=== PATIENT | female | born 1975 | race Caucasian/White ===

== ENCOUNTER → 2017-01-01 | Outpatient (CLI) | payer BC ==
[2017-01-01 11:48] LABS: Basophils # (A) 0.1 k/uL (0-0.2); Basophils % (A) 1 %; CH 30.7; CHCM 33.5; Eosinophils # (A) 0.5 k/uL (0-0.7); Eosinophils % (A) 6 %; HCT 45.1 % (34.0-46.0); HDW 2.26; HGB 14.7 gm/dL (11.4-16.0); Luc # (Auto) 0.19; Luc % (Auto) 2; Lymphocytes # (A) 2.2 k/uL (1.0-4.8); Lymphocytes % (A) 29 %; MCH 29.9 pg (25.0-35.0); MCHC 32.5 g/dL (31.0-37.0); MCV 91.9 fL (80.0-100.0); Mean Platelet Volume 7.8; Monocytes # (A) 0.4 k/uL (0-1.0); Monocytes % (A) 6 %; Neutrophils # (A) 4.4 k/uL (1.3-7.7); Neutrophils % (A) 57 %; RDW 12.7 % (11.5-15.5); WBC 7.8 k/uL (3.8-10.6); WBC (Perox) 7.77
== END | disposition home or self-care (01) ==
LOC: LABWHC1 11:16
PROVIDERS: ATTEND Obstetrics & Gynecology
DX: Z00.00 Encounter for general adult medical examination without abnormal findings (principal)
CPT/HCPCS: 36415; 80061; 82306; 82947; 84439; 84443; 85025

== ENCOUNTER 2019-04-28 09:28 | Day surgery (SDC) | payer BC ==
[2019-04-26 11:29] VITALS: BMI 41.6
[~2019-04-28 09:28] MED LIST: DEXAMETHASONE SOD PHOSPHATE 10 MG/ML 1 ML VIAL IV ONE; LIDOCAINE 1% 20 ML VIAL (10MG/ML) FOR IV START INTRADERMA PRN; MELOXICAM 7.5 MG TAB PO ONE; MIDAZOLAM 2 MG/2 ML VIAL IV PRN; ONDANSETRON 4 MG/2 ML VIAL IVP ONE; ceFAZolin IN SWFI 2 GM/20 ML SYRINGE IVP ONE; fentaNYL (PF) 50 MCG/ML 2 ML AMP IV PRN
[2019-04-28] MEDS: LACTATED RINGERS 1,000 ML IV SCH ×2 (10:06→11:17)
[2019-04-28] MEDS ORDERED: MIDAZOLAM 2 MG/2 ML VIAL ONE (11:38)
[2019-04-28] MEDS ORDERED: NEOSTIGMINE 1 MG/ML 10 ML VIAL ONE (11:38)
[2019-04-28] MEDS ORDERED: LIDOCAINE 1% INJ 10MG/ML (20 ML MDV) ONE (11:38)
[2019-04-28] MEDS ORDERED: SUCCINYLCHOLINE CHLORIDE 100 MG/5 ML SYR IV ONE (11:38)
[2019-04-28] MEDS ORDERED: PROPOFOL 10 MG/ML 20 ML VIAL IV ONE (11:38)
[2019-04-28] MEDS ORDERED: ROCURONIUM BROMIDE 10 MG/ML 10 ML VIAL IV ONE (11:38)
[2019-04-28] MEDS ORDERED: fentaNYL (PF) 50 MCG/ML 2 ML AMP ONE (11:38)
[2019-04-28] MEDS ORDERED: GLYCOPYRROLATE 0.2 MG/ML 2 ML VIAL ONE (11:38)
--- NOTE | 2019-04-28 11:50 | P.OPNOTE ---
Outpatient Note - . Assessment/Comments:: Patient seen and examined in preoperative holding. History and physical dated 04/22/2019 is confirmed with no new medical problems or health history changes.
[2019-04-28] MEDS ORDERED: BUPIVACAINE (PF) 0.25% 30 ML VIAL SQ ONE (12:21)
--- NOTE | 2019-04-28 13:30 | P.OP ---
Date of Procedure: 04/28/19 Procedure(s) Performed: PREOPERATIVE DIAGNOSES: 1. Right knee anterior cruciate ligament tear POSTOPERATIVE DIAGNOSES: 1. Right knee anterior cruciate ligament tear PROCEDURES PERFORMED: 1. Right knee arthroscopically-assisted anterior cruciate ligament reconstruction with soft tissue allograft ANESTHESIA: reverse logistics analyst: Lashell Ace PA-C (assistance with: patient positioning, retraction, graft prep, camera operation, reconstruction, irrigation, closure, dressing) COMPLICATIONS: None ESTIMATED BLOOD LOSS: Less than 20 cc TOURNIQUET: 75 minutes DISPOSITION: To post-anesthesia care unit INDICATIONS: Annalee is a 43-year-old female with a history of right knee ACL tear. She also has generalized ligament laxity. We have discussed different approaches to ACL reconstruction and the decision is for soft tissue allograft reconstruction with possible meniscal repair versus debridement. I have explained the details of this surgery thoroughly and also explained the potential risks and complications, including the relative risks of graft failure. Other risks are inclusive of, but not limited to: bleeding, infection, scarring, discomfort, blood vessel and nerve damage, stiffness, weakness, need for further surgery, failure to relieve symptoms, persistence or worsening of problems, , and other risks. The patient is aware of these risks and agrees to proceed with surgery. The consent form has been signed. PROCEDURE: After appropriate consent was obtained, the patient was taken to the operating room and placed supine on the operating table. General anesthesia was initiated. The knee was examined under anesthesia. Medial collateral, lateral collateral and posterior cruciate ligaments were all intact. There was positive pivot shift of 2+ and 4mm anterior translation with both Sheldon and anterior drawer. Full range of motion was noted without crepitus. No effusion or soft tissue swelling was noted. Prepping and draping of the right knee was performed in the usual sterile fashion using ChloraPrep. Care was taken that all pressure points were adequately padded. Leg romero and pneumotourniquet were used. Time-out was called according to JCAHO standards, confirming patient identity, surgical procedure, side, and antibiotic administration. Graft preparation took place on the Arthrex graft preparation station. The preprepared graft was inserted onto the Arthrex ACL tightrope RT on one side, and the ABS sutures on the other. These devices were then attached to the adjustable sliding units on the prep station. The graft was then set to 20 pounds of tension on the graft prep board and covered with a sterile saline soa ked gauze pad. During the preparation of the graft, arthroscopy commenced. The surgical portals were placed directly next to the patellar tendon medially and laterally. Camera and instruments were carefully inserted into the knee and arthroscopy was performed. The patellofemoral joint was normal. Hyaline cartilage was normal. No loose bodies in the medial or lateral gutters, quad tendon normal. No plica. Lateral compartment showed normal hyaline cartilage without defect. Meniscus was normal to visualization and probing. No loose bodies were seen within the lateral compartment. Medial compartment was then examined. Medial hyaline cartilage of the femur and tibia were normal. Medial meniscus showed no tear to visualization and probing. The notch of the knee was then inspected. The patient had a complete tear of the ACL at the femoral attachment with a small Cyclops lesion. The remnant was debrided away with care to avoid injuring the PCL. The notch in this patient wa s somewhat narrow, and so it was expanded in the lateral direction with a leeroy. Only 3 mm of bone was resected from the lateral portion of the notch, just enough to get the guide in.. The soft tissue on the lateral side of the notch was cleared as necessary using a shaver. Next, the femoral socket was created using the Arthrex flip cutter guide. The guide was adjusted through the anterolateral portal after careful measurement of the anterior to posterior condylar distance on the lateral notch. A spot approximately between 40 and 50% of this length was chosen and the guide was moved superiorly only as much as to allow for a 2.5 mm back wall. Incision was created on the lateral side of the thigh over the IT band and the guide was placed against the bone. Guide position was adjusted so that there was 20 of anterior elevation in the coronal plane of the femur and 60 in the sagittal plane. Drilling was then performed using the flip cutter drill pin into the knee at the appropriate location. Once the pin position was noted to be satisfactory, the guide was removed and the drill sleeve was tapped into the bone using a mallet. The flip cutter was then deployed and retro-drilling was performed to create a femoral socket of approximately 25 mm. Debris was suctioned out using a shaver. Passing suture was then inserted into the knee joint and carried out through the anteromedial portal. The tibial tunnel was created by the following steps. The retro-cutter aiming guide for the tunnel was placed into the anteromedial portal and onto the cleared central footprint of the gakona ACL. The guide cylinder was placed securely on the tibial cortex. The tibial bone length was measured. The retro- cutter guide pin was then inserted into the tibia to emerge at the mid-posterior aspect of the gakona ACL footprint, approximately 5 mm from the PCL and just anterior to the posterior border of the anterior horn of the lateral meniscus. The pin was noted to be in excellent position. The retro-cutter was then deployed and reverse drilling was performed creating a tibial socket approximately 30 mm in length. No fracture was noted. The intraarticular debris was removed using a shaver. Graft passing suture was placed. The femoral portion of the GraftLink construct was then inserted into the knee joint, guided by the passing suture. The Endobutton was carried through the femoral cortex and flipped, engaging the cortex securely. Approximately 10 mm or so of the graft was then placed into the femoral socket, using the sutures of the Endobutton. In similar fashion, the graft passing suture was placed into the loop and brought out through the tibial tunnel. This brought the tibial ABS sutures along with it. Approximately 15 mm of graft was placed within the tibial tunnel at which point the adjustable button for the tibia was placed on the sutures. The femoral portion of the graft was completely deployed at this point and bottomed out nicely. The adjustable button was confirmed to be on the cortex of the tibia without interposed soft tissue and preliminary tensioning was performed at that point in full extension. No graft impingement was noted. The knee was then taken through range of motion cycling 10 times. There was no significant motion of the graft detected and the femoral and tibial fixation was noted to be solid. Further tightening of the sutures was performed in extension from the tibial side and the knee was cycled 10 more times with final tightening of the sutures at that point. Sutures were then tied together over the button. Knee was then taken through range of motion which was noted to be full. No graft impingement was noted at the roof or sides of the notch. Fluid was removed from the knee and testing was performed. Anterior drawer 0 mm and Sheldon 0 mm. Negative pivot shift. Tourniquet was deflated. Hemostasis was obtained using cautery and pressure. Graft passing sutures were removed or cut as necessary. Thorough irrigation using antibiotic solution was performed, and portals were closed with 4-0 Monocryl suture. Posterior medial incision for hamstring harvest was closed with 3-0 Vicryl suture in the subcutaneous tissue, followed by 4-0 Monocryl suture in running subcuticular fashion for the skin, followed by Dermabond. Tibial incision was closed with 4-0 Monocryl for the skin. Steri strips were applied. Sterile dressing and light compressive dressing was applied using Webril and SLOAN wrap. Knee immobilizer was applied. Patient tolerated the procedure well and taken to recovery room in stable condition. Sponge and needle counts were correct.
[2019-04-28] MEDS ORDERED: LACTATED RINGERS 1,000 ML IV ONE (13:36)
[2019-04-28 13:51] VITALS: TEMP 96.2
[2019-04-28] MEDS ORDERED: KETOROLAC 30 MG/ML 1 ML VIAL IVP ONE (13:51)
[2019-04-28] MEDS ORDERED: HYDROmorphone 1 MG/ML 1 ML SYRINGE IVP ONE ×2 (14:06→14:21)
[2019-04-28 14:21] VITALS: RESP 16
[2019-04-28 14:43] VITALS: BP 109/65
[2019-04-28 15:05] VITALS: PULSE 54
== END 2019-04-28 15:52 | disposition home or self-care (01) ==
LOC: OR 09:28
PROVIDERS: ATTEND Orthopaedic Surgery
DX: S83.511A Sprain of anterior cruciate ligament of right knee, initial encounter (principal); X58.XXXA Exposure to other specified factors, initial encounter; J45.909 Unspecified asthma, uncomplicated; J98.4 Other disorders of lung; F41.9 Anxiety disorder, unspecified; K21.9 Gastro-esophageal reflux disease without esophagitis; F32.9 Major depressive disorder, single episode, unspecified; Z90.710 Acquired absence of both cervix and uterus; I34.1 Nonrheumatic mitral (valve) prolapse; Z79.3 Long term (current) use of hormonal contraceptives; Z79.51 Long term (current) use of inhaled steroids; Z79.810 Long term (current) use of selective estrogen receptor modulators (SERMs); Z79.899 Other long term (current) drug therapy; Z83.3 Family history of diabetes mellitus; Z91.041 Radiographic dye allergy status
CPT/HCPCS: 29888; C1713; C1762; J2250; J1100; J2710; J2405; J2001; J3010; J1885; J1170; J0330; J2704; J0690

== ENCOUNTER 2020-10-08 10:12 | Emergency (ER) | payer BC ==
[2020-10-08 10:19] VITALS: RESP 18
[2020-10-08] MEDS ORDERED: ACETAMINOPHEN TAB 325 MG TAB PO STA (10:35)
--- NOTE | 2020-10-08 10:35 | ED ---
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 pateint states yesterday while cooking scott she could not smell it very well. Patient states she developed a small back spelled could only small and smell it faintly. Pt was concerned of covid. This morning patient woke up this AM and states that she felt like she could not expand her lungs, they felt tight with a deep breath and she had a slight cough, fatigue. Denies vomiting, diarrhea, known fevers. patient denies arm or jaw pain. Pt states she was not concerned of her heart she states it feels like lungs are tight. Patient is in good spirits and appears well on arrival. - Related Data Home Medications Medication Instructions Recorded Confirmed Lisdexamfetamine Dimesylate 50 mg PO QAM 10/08/20 10/08/20 [Vyvanse] Tamoxifen Citrate 20 mg PO HS 10/08/20 10/08/20 Venlafaxine HCl ER [Effexor Xr] 75 mg PO DAILY 10/08/20 10/08/20 Allergies Allergy/AdvReac Type Severity Reaction Status Date / Time Iodinated Contrast Media Allergy Rash/Hives Verified 10/08/20 11:07 [Iodinated Contrast- Oral and IV Dye] MRI CONTRAST DYE Allergy Rash/Hives Uncoded 10/08/20 10:19 Review of Systems ROS Statement: Those systems with pertinent positive or pertinent negative responses have been documented in the HPI. ROS Other: All systems not noted in ROS Statement are negative. Past Medical History Past Medical History: Asthma, GERD/Reflux History of Any Multi-Drug Resistant Organisms: None Reported Past Surgical History: Hysterectomy Additional Past Surgical History / Comment(s): R ACL repair, breast reduction Past Psychological History: Depression Smoking Status: Never smoker Past Alcohol Use History: None Reported Past Drug Use History: None Reported General Exam - General Exam Comments Initial Comments: General: The patient is awake and alert, in no distress, and does not appear acutely ill. Eye: +3 mm pupils are equal, round and reactive to light, extra-ocular movements are intact. No nystagmus. There is normal conjunctiva bilaterally. No signs of icterus. Ears, nose, mouth and throat: There are moist mucous membranes and no oral lesions. Neck: The neck is supple, there is no tenderness or JVD. Cardiovascular: There is a regular rate and rhythm. No murmur, rub or gallop is appreciated. Respiratory: Lungs are clear to auscultation, respirations are non-labored, damien ath sounds are equal. No wheezes, stridor, rales, or rhonchi. Gastrointestinal: Soft, non-distended, non-tender abdomen without masses or organomegaly noted. There is no rebound or guarding present. Musculoskeletal: Normal ROM, no tenderness. Strength 5/5. Sensation intact. Radia pulses equal bilaterally 2+. Neurological: A&O x 3. CN II-XII intact grossly, There are no obvious motor or sensory deficits. Coordination appears grossly intact. Speech is normal. Skin: Skin is warm and dry and no rashes or lesions are noted. Psychiatric: Cooperative, appropriate mood & affect, normal judgment. Limitations: no limitations Course Vital Signs 10/08/20 10/08/20 10/08/20 10:14 10:37 11:54 Temperature 100.5 F H 98.8 F Pulse Rate 104 H 85 Respiratory 18 18 18 Rate Blood Pressure 128/89 125/90 O2 Sat by Pulse 97 99 Oximetry Chest Pain MDM - MDM 45yo female presenting for chest tightness with inspiration. CXR posssible developing infiltrate. COvid +. Patient VS within acceptable limits as are laboratory studies. Pt does not appear in distress. discussed reutnr parameters. and patient was discharged appearing well. Dr. Do reviewed EKG, we discussed case/labs pt discharged appearing well. Ventricular rate 89 bpm, NJ interval 128 ms, QR samaritan 84 ms, QT/QTC 378/[address] elevation or depression is appreciated Disposition Clinical Impression: Chest discomfort, Loss of taste, Loss of smell, Fever Disposition: HOME SELF-CARE Condition: Good Instructions (If sedation given, give patient instructions): Upper Respiratory Infection (ED) Additional Instructions: Please use medication as discussed. Please follow-up with family doctor in the next 2 days.. Please return to emergency room if the symptoms increase or worsen or for any other concerns. Is patient prescribed a controlled substance at d/c from ED?: No Referrals: Alonzo Dugan MD [Primary Care Provider] - 1-2 days Time of Disposition: 12:00
[2020-10-08 11:18] LABS: Basophils % (A) 1 %; Eosinophils # (A) 0.1 k/uL (0-0.7); Eosinophils % (A) 2 %; HCT 41.7 % (34.0-46.0); HGB 13.6 gm/dL (11.4-16.0); Lymphocytes % (A) 25 %; MCH 28.6 pg (25.0-35.0); MCHC 32.7 g/dL (31.0-37.0); MCV 87.5 fL (80.0-100.0); Monocytes # (A) 0.4 k/uL (0-1.0); Monocytes % (A) 10 %; Neutrophils # (A) 2.4 k/uL (1.3-7.7); Neutrophils % (A) 60 %; Platelet Count 170 k/uL (150-450); RBC 4.76 m/uL (3.80-5.40); RDW 12.8 % (11.5-15.5); WBC 3.9 k/uL (3.8-10.6)
[2020-10-08 11:32] LABS: ALT 42 U/L (4-34); AST 48 U/L (14-36); African American GFR (CKD) >90 (>60 ml/min/1.73 sqM); Albumin 4.1 g/dL (3.5-5.0); Alkaline Phosphatase 78 U/L (38-126); Anion Gap 10 mmol/L; Blood Urea Nitrogen 13 mg/dL (7-17); C Reactive Protein 11.4 mg/L (<10.0); Carbon Dioxide 20 mmol/L (22-30); Chloride 107 mmol/L (98-107); Glucose 97 mg/dL (74-99); LDH 505 U/L (313-618); Non-African American GFR(CKD) >90 (>60 ml/min/1.73 sqM); Potassium 4.3 mmol/L (3.5-5.1); Sodium 137 mmol/L (137-145); Total Bilirubin 0.2 mg/dL (0.2-1.3); Total Protein 6.9 g/dL (6.3-8.2)
[2020-10-08 11:38] LABS: D-Dimer 0.28 mg/L FEU (<0.60); INR 0.9 (<1.2); Partial Thromboplastin Time 22.7 sec (22.0-30.0); Prothrombin Time 9.7 sec (9.0-12.0)
[2020-10-08] MEDS ORDERED: AZITHROMYCIN 500 MG TAB PO STA (11:39)
--- NOTE | 2020-10-08 11:39 | XR ---
EXAMINATION TYPE: XR chest 1V portable DATE OF EXAM: 10/08/2020 COMPARISON: NONE HISTORY: Chest pain TECHNIQUE: Single frontal view of the chest is obtained. FINDINGS: Increased density right medial lung base may reflect developing infiltrate. Correlate clinically and progress studies are recommended. The cardiac silhouette size is within normal limits. The osseous structures are intact. IMPRESSION: 1. Increased density right medial lung base may reflect developing infiltrate. Correlate clinically and progress studies are recommended.
[2020-10-08 12:12] VITALS: BP 120/84; PULSE 96; TEMP 98.6
[2020-10-08 18:59] LABS: Ferritin 221.7 ng/mL (10.0-291.0)
== END 2020-10-08 12:12 | disposition home or self-care (01) ==
LOC: EC 10:12
DX: U07.1 COVID-19 (principal); F32.9 Major depressive disorder, single episode, unspecified; Z79.899 Other long term (current) drug therapy; Z91.041 Radiographic dye allergy status
CPT/HCPCS: 36415; 71045; 80053; 82728; 83605; 83615; 83735; 84145; 84484; 85025; 85379; 85610; 85730; 86140; 87040; 87635; 93005; 99285

== ENCOUNTER 2020-10-11 19:17 | Emergency (ER) | payer BC ==
[2020-10-11] MEDS ORDERED: DEXAMETHASONE SOD PHOSPHATE 10 MG/ML 1 ML VIAL IV STA (19:21)
[2020-10-11] MEDS ORDERED: SODIUM CHLORIDE 0.9% 1,000 ML IV ONE (19:21)
[2020-10-11 19:50] LABS: Basophils % (A) 0 %; Eosinophils % (A) 1 %; HCT 41.8 % (34.0-46.0); HGB 13.4 gm/dL (11.4-16.0); Lymphocytes # (A) 0.9 k/uL (1.0-4.8); Lymphocytes % (A) 23 %; MCH 27.9 pg (25.0-35.0); MCHC 32.1 g/dL (31.0-37.0); MCV 86.8 fL (80.0-100.0); Mean Platelet Volume 8.5; Monocytes # (A) 0.1 k/uL (0-1.0); Monocytes % (A) 3 %; Neutrophils # (A) 2.8 k/uL (1.3-7.7); Neutrophils % (A) 72 %; Platelet Count 178 k/uL (150-450); RBC 4.82 m/uL (3.80-5.40); RDW 12.4 % (11.5-15.5); WBC 3.9 k/uL (3.8-10.6)
--- NOTE | 2020-10-11 20:01 | ED ---
SOB HPI - General Chief Complaint: Shortness of Breath Stated Complaint: SOB Time Seen by Provider: 10/11/20 19:20 Source: patient Mode of arrival: ambulatory - History of Present Illness Initial Comments: 45-year-old female patient presents to the emergency department today for e valuation of increasing shortness of breath and cough. Patient states that she was diagnosed with COVID-19 on Wednesday. States she's been having symptoms for about a week total which include cough, shortness of breath, and headaches. States she does have a history of asthma and has been attempting to use her inhaler which is not helping. States she did see her primary care physician was started on a Medrol Dosepak. Patient states that today her breathing became worse and she wanted to get evaluated. There are other sick individuals in her home. She denies any other medical problems. Denies hemoptysis, dizziness, or fainting. Denies any leg swelling or pain. Denies history of smoking cigarettes. Patient denies any recent rash, abdominal pain, nausea, vomiting, diarrhea, constipation, back pain, numbness, tingling, dizziness, weakness, hematuria, dysuria, urinary urgency, urinary frequency, headache, visual changes, or any other complaints. - Related Data Home Medications Medication Instructions Recorded Confirmed Lisdexamfetamine Dimesylate 50 mg PO QAM 10/08/20 10/08/20 [Vyvanse] Tamoxifen Citrate 20 mg PO HS 10/08/20 10/08/20 Venlafaxine HCl ER [Effexor Xr] 75 mg PO DAILY 10/08/20 10/08/20 Previous Rx's Medication Instructions Recorded Azithromycin [Zithromax Z-pack (6 0 mg PO DIRECTED 5 Days #6 tab 10/08/20 tabs)] Allergies Allergy/AdvReac Type Severity Reaction Status Date / Time Iodinated Contrast Media Allergy Rash/Hives Verified 10/08/20 11:07 [Iodinated Contrast- Oral and IV Dye] MRI CONTRAST DYE Allergy Rash/Hives Uncoded 10/08/20 10:19 Review of Systems ROS Statement: Those systems with pertinent positive or pertinent negative responses have been documented in the HPI. ROS Other: All systems not noted in ROS Statement are negative. Past Medical History Past Medical History: Asthma, GERD/Reflux History of Any Multi-Drug Resistant Organisms: None Reported Past Surgical History: Hysterectomy Additional Past Surgical History / Comment(s): R ACL repair, breast reduction Past Psychological History: Anxiety, Depression Smoking Status: Never smoker Past Alcohol Use History: None Reported Past Drug Use History: None Reported General Exam General appearance: alert, in no apparent distress, other (Physical well- developed, well-nourished adult female patient in no acute distress. Vital s igns upon presentation temperature 98.1F, pulse 82, respirations 22, blood pressure 121/78, pulse ox 99% on room air.) Eye exam: Present: normal appearance, PERRL, EOMI. Absent: scleral icterus, conjunctival injection, periorbital swelling ENT exam: Present: normal exam, normal oropharynx, mucous membranes moist Respiratory exam: Present: normal lung sounds bilaterally, other (Tachypnea). Absent: respiratory distress, wheezes, rales, rhonchi, stridor Cardiovascular Exam: Present: regular rate, normal rhythm, normal heart sounds. Absent: systolic murmur, diastolic murmur, rubs, gallop, clicks GI/Abdominal exam: Present: soft, normal bowel sounds. Absent: distended, tenderness, guarding, rebound, rigid Neurological exam: Present: alert, oriented X3, CN II-XII intact Psychiatric exam: Present: normal affect, normal mood Skin exam: Present: warm, dry, intact, normal color. Absent: rash Course Vital Signs 10/11/20 19:25 Temperature 98.1 F Pulse Rate 82 Respiratory 22 Rate Blood Pressure 121/78 O2 Sat by Pulse 99 Oximetry Medical Decision Making - Medical Decision Making 45-year-old female patient diagnosed with COVID-19 on Wednesday after having symptoms for the last week. Patient comes in today reporting increased shortness of breath and worsening cough. Physical examination did reveal clear equal lung sounds. She did appear to be short of breath. She is able to speak full sentences. Chest x-ray is negative. Labs reviewed and did reveal mildly elevated liver enzymes, lymphopenia, and mildly elevated CRP. V/S look good, O2 saturation 99-100% on room air. I did discuss findings and results with the patient. She is instructed to continue home steroids and inhaler. She'll be discharged from the primary care physician for recheck in 1-2 days. Return parameters were discussed in detail. She verbalizes understanding and agrees with this plan. - Lab Data Result diagrams: 10/11/20 19:44 10/11/20 19:44 Lab Results 10/11/20 10/11/20 Range/Units 19:44 19:44 WBC 3.9 (3.8-10.6) k/uL RBC 4.82 (3.80-5.40) m/uL Hgb 13.4 (11.4-16.0) gm/dL Hct 41.8 (34.0-46.0) % MCV 86.8 (80.0-100.0) fL MCH 27.9 (25.0-35.0) pg MCHC 32.1 (31.0-37.0) g/dL RDW 12.4 (11.5-15.5) % Plt Count 178 (150-450) k/uL MPV 8.5 Neutrophils % 72 % Lymphocytes % 23 % Monocytes % 3 % Eosinophils % 1 % Basophils % 0 % Neutrophils # 2.8 (1.3-7.7) k/uL Lymphocytes # 0.9 L (1.0-4.8) k/uL Monocytes # 0.1 (0-1.0) k/uL Eosinophils # 0.0 (0-0.7) k/uL Basophils # 0.0 (0-0.2) k/uL Sodium 136 L (137-145) mmol/L Potassium 4.9 (3.5-5.1) mmol/L Chloride 108 H (98-107) mmol/L Carbon Dioxide 16 L (22-30) mmol/L Anion Gap 12 mmol/L BUN 11 (7-17) mg/dL Creatinine 0.61 (0.52-1.04) mg/dL Est GFR (CKD-EPI)AfAm >90 (>60 ml/min/1.73 sqM) Est GFR (CKD-EPI)NonAf >90 (>60 ml/min/1.73 sqM) Glucose 151 H (74-99) mg/dL Calcium 9.4 (8.4-10.2) mg/dL Total Bilirubin 0.4 (0.2-1.3) mg/dL AST 68 H (14-36) U/L ALT 52 H (4-34) U/L Alkaline Phosphatase 100 (38-126) U/L Lactate Dehydrogenase 749 H (313-618) U/L C-Reactive Protein 15.5 H (<10.0) mg/L Total Protein 7.3 (6.3-8.2) g/dL Albumin 4.2 (3.5-5.0) g/dL - Radiology Data Radiology results: report reviewed, image reviewed One view x-ray of the chest is obtained. Report was reviewed in its entirety. Impression by Dr. Luna shows normal chest. No change. Disposition Clinical Impression: COVID-19, Shortness of breath Disposition: HOME SELF-CARE Condition: Good Instructions (If sedation given, give patient instructions): Viral Syndrome (ED), Shortness of Breath (ED) Additional Instructions: Continue medications as directed. Follow-up through primary care physician for recheck in 1-2 days. Return to the emergency department immediately if you're symptoms change or worsen. Is patient prescribed a controlled substance at d/c from ED?: No Referrals: Alonzo Dugan MD [Primary Care Provider] - 1-2 days Time of Disposition: 20:45
[2020-10-11 20:03] LABS: AST 68 U/L (14-36); African American GFR (CKD) >90 (>60 ml/min/1.73 sqM); Albumin 4.2 g/dL (3.5-5.0); Alkaline Phosphatase 100 U/L (38-126); Anion Gap 12 mmol/L; Blood Urea Nitrogen 11 mg/dL (7-17); C Reactive Protein 15.5 mg/L (<10.0); Calcium 9.4 mg/dL (8.4-10.2); Carbon Dioxide 16 mmol/L (22-30); Chloride 108 mmol/L (98-107); Glucose 151 mg/dL (74-99); LDH 749 U/L (313-618); Non-African American GFR(CKD) >90 (>60 ml/min/1.73 sqM); Potassium 4.9 mmol/L (3.5-5.1); Sodium 136 mmol/L (137-145); Total Bilirubin 0.4 mg/dL (0.2-1.3); Total Protein 7.3 g/dL (6.3-8.2)
[2020-10-11 20:08] LABS: ALT 52 U/L (4-34)
--- NOTE | 2020-10-11 20:29 | XR ---
EXAMINATION TYPE: XR chest 1V portable DATE OF EXAM: 10/11/2020 COMPARISON: 10/08/2020 HISTORY: Cough TECHNIQUE: Single view FINDINGS: Heart is normal. Lungs are clear of infiltrate. There is no heart failure. There are no hil ar masses. The bony thorax is intact. IMPRESSION: Normal chest. No change.
[2020-10-11 21:31] VITALS: BP 130/68; PULSE 86; RESP 20; TEMP 98.4
== END 2020-10-11 21:20 | disposition home or self-care (01) ==
LOC: EC 19:17
DX: U07.1 COVID-19 (principal); D72.810 Lymphocytopenia; R94.5 Abnormal results of liver function studies; R79.82 Elevated C-reactive protein (CRP); F41.9 Anxiety disorder, unspecified; F32.9 Major depressive disorder, single episode, unspecified; Z79.899 Other long term (current) drug therapy; Z91.041 Radiographic dye allergy status
CPT/HCPCS: 36415; 80053; 83615; 85025; 86140; 71045; 99285; 96374; 96361; J1100

== ENCOUNTER → 2024-04-13 | Outpatient (CLI) | payer BC ==
[2024-04-14 03:31] LABS: Basophils # (A) 0.11 X 10*3/uL (0.00-0.10); Basophils % (A) 1.2 %; Eosinophils # (A) 0.54 X 10*3/uL (0.04-0.35); Eosinophils % (A) 5.7 %; HCT 36.8 % (37.2-46.3); HGB 11.3 g/dL (12.0-15.0); Lymphocytes # (A) 3.17 X 10*3/uL (0.90-5.00); Lymphocytes % (A) 33.6 %; MCH 25.3 pg (27.0-32.0); MCHC 30.7 g/dL (32.0-37.0); MCV 82.3 FL (80.0-97.0); Mean Platelet Volume 12.2 FL (9.5-12.2); Monocytes # (A) 0.61 X 10*3/uL (0.20-1.00); Monocytes % (A) 6.5 %; NRBC Per 100 WBC 0 X 10*3/uL (0.00-0.01); Neutrophils # (A) 4.99 X 10*3/uL (1.80-7.70); Neutrophils % (A) 52.8 %; Platelet Count 263 X 10*3/uL (140-440); RBC 4.47 X 10*6/uL (4.10-5.20); RDW 15.9 % (11.5-14.5); WBC 9.44 X 10*3/uL (4.50-10.00)
[2024-04-14 05:30] LABS: ALT 40 U/L (8-44); AST 28 U/L (13-35); Albumin 4.4 g/dL (3.8-4.9); Albumin/Globulin Ratio 1.76 Ratio (1.60-3.17); Alkaline Phosphatase 104 U/L (41-126); BUN/Creat Ratio 18.75 Ratio (12.00-20.00); Calcium 9.3 mg/dL (8.7-10.3); Carbon Dioxide 21.9 mmol/L (21.6-31.8); Chloride 104 mmol/L (96-109); Chol/HDL Ratio 3.48 Ratio; Globulin 2.5 g/dL (1.6-3.3); Glucose 90 mg/dL (70-110); LDL Cholesterol,Calculated 65.6 mg/dL (0.0-131.0); Sodium 140 mmol/L (135-145); Total Bilirubin <0.2 mg/dL (0.3-1.2); Total Protein 6.9 g/dL (6.2-8.2)
[2024-04-14 06:02] LABS: T4, Free (Free Thyroxine) 1.19 ng/dL (0.80-1.80)
== END | disposition home or self-care (01) ==
LOC: LABWHC1 15:53
PROVIDERS: ATTEND Psychiatry & Neurology Psychiatry
DX: F33.0 Major depressive disorder, recurrent, mild (principal); F41.1 Generalized anxiety disorder; E66.9 Obesity, unspecified; Z68.41 Body mass index [BMI] 40.0-44.9, adult
CPT/HCPCS: 36415; 80053; 80061; 82306; 82607; 82652; 82746; 83036; 83525; 84439; 84443; 85025

== ENCOUNTER → 2024-11-17 | Outpatient (CLI) | payer BC ==
[2024-11-17 20:13] LABS: HCT 42.4 % (37.2-46.3); HGB 13.4 g/dL (12.0-15.0); MCH 26.8 pg (27.0-32.0); MCHC 31.6 g/dL (32.0-37.0); MCV 84.8 FL (80.0-97.0); Mean Platelet Volume 12.3 FL (9.5-12.2); NRBC Per 100 WBC 0 X 10*3/uL (0.00-0.01); Platelet Count 245 X 10*3/uL (140-440); RDW 14.6 % (11.5-14.5); WBC 7.71 X 10*3/uL (4.50-10.00)
[2024-11-17 20:14] LABS: Basophils % (A) 1.3 %; Eosinophils # (A) 0.49 X 10*3/uL (0.04-0.35); Eosinophils % (A) 6.4 %; Lymphocytes # (A) 2.81 X 10*3/uL (0.90-5.00); Lymphocytes % (A) 36.4 %; Monocytes # (A) 0.47 X 10*3/uL (0.20-1.00); Monocytes % (A) 6.1 %; Neutrophils # (A) 3.82 X 10*3/uL (1.80-7.70); Neutrophils % (A) 49.5 %
[2024-11-17 21:11] LABS: Amylase 65 U/L (23-121); Lipase 34 U/L (14-63)
[2024-11-17 21:12] LABS: % Iron Saturation 18.16 (12.00-45.00); ALT 18 U/L (8-44); AST 15 U/L (13-35); Albumin 4.3 g/dL (3.8-4.9); Albumin/Globulin Ratio 1.65 Ratio (1.60-3.17); Alkaline Phosphatase 110 U/L (41-126); BUN/Creat Ratio 21.25 Ratio (12.00-20.00); Bilirubin, Conjugated <0.20 mg/dL (0.20-0.40); Bilirubin,Unconjugated >0 mg/dL (0.20-1.00); Calcium 9.3 mg/dL (8.7-10.3); Carbon Dioxide 25.8 mmol/L (21.6-31.8); Chloride 103 mmol/L (96-109); Globulin 2.6 g/dL (1.6-3.3); Glucose 87 mg/dL (70-110); Iron 65 UG/DL (50-170); Potassium 3.9 mmol/L (3.5-5.5); Sodium 141 mmol/L (135-145); T4, Free (Free Thyroxine) 0.88 ng/dL (0.80-1.80); Total Bilirubin 0.2 mg/dL (0.3-1.2); Total Iron Binding Capacity 358 UG/DL (228-460); Total Protein 6.9 g/dL (6.2-8.2)
== END | disposition home or self-care (01) ==
LOC: LABWHC1 12:37
PROVIDERS: ATTEND Psychiatry & Neurology Psychiatry
DX: F33.0 Major depressive disorder, recurrent, mild (principal); F41.1 Generalized anxiety disorder; E66.9 Obesity, unspecified; Z68.33 Body mass index [BMI] 33.0-33.9, adult
CPT/HCPCS: 36415; 80053; 82150; 82248; 82306; 82465; 82652; 82746; 83036; 83525; 83540; 83550; 83690; 84439; 84443; 85025